=== PATIENT | female | born 1965 | race Asian ===

== ENCOUNTER 2021-08-30 15:28 | Emergency (ER) | payer OTHER, SELFPAY ==
[2021-08-30 15:41] VITALS: BP 140/70; BP 149/85; PULSE 90; PULSE 98; RESP 20; TEMP 37.1; O2SAT 100; O2SAT 99; BMI 25.4
[2021-08-30] MEDS: methylPREDNISolone Sod Succ 125 MG/2 ML VIAL IVPUSH (15:57)
[2021-08-30] MEDS: Famotidine/PF 20 MG/2 ML VIAL IVPUSH (15:57)
--- NOTE | 2021-08-30 16:04 | PC.NURSE ---
Pt presentss to ED with facial swelling and hives, improved since on scene per EMS. no diff breathing but reports itchy throat. Airway patent. Recieved epi x2 in field. Medicated as charted. NSR on tele rate 80-90s
--- NOTE | 2021-08-30 16:05 | ED.ALLEREA ---
HPI - Allergic Reaction General Chief complaint: Allergic Reaction Stated complaint: ALERGIC REACTION Time Seen by Provider: 08/30/21 15:39 Source: patient and EMS Mode of arrival: EMS Limitations: no limitations History of Present Illness HPI narrative: 55 y/o female with no medical history presents to the ER with an allergic reaction 1 hour after eating shrimp and rice. She reports 1 hour after eating it she started having hives on her face, neck, lower legs. She also reported itchy throat, lip swelling and wheezing. EMS was called and patient was given intramuscular epinephrine x2 as well as 50 of Benadryl IV. Patient denies any history of anaphylaxis. She reports a history of childhood hives for which she was on antihistamine for 8 years, stopped and then has never had any allergic reactions since then. She eats trim frequently and has never had allergic reaction before. She is not on any medications. On arrival to the ER she reports her symptoms are improved but she still feels itchiness in her throat and on the right side of her face. She also feels like her bottom lip is swollen. She is anxious and tremulous on arrival. MD complaint: allergic reaction, hives and facial swelling Onset (ago): minute(s) Exposure: food Symptoms: rash, itching, facial swelling and lip swelling Severity: severe Treatment prior to arrival: benadryl and epinephrine Previous Allergic Reaction History: other (Hives as a child) Related Data Allergies Allergy/AdvReac Type Severity Reaction Status Date / Time No Known Allergies Allergy Verified 08/30/21 15:44 Review of Systems Review of Systems: Constitutional: No Fever, No Chills ENT/Mouth: No sore throat, No Rhinorrhea, No Swallowing Difficulty, +throat itching, +lip swelling Eyes: No Eye Pain, No Swelling, No Redness Cardiovascular: No Chest Pain, No SOB Respiratory: No Cough, No Sputum, + Wheezing, No dyspnea Gastrointestinal: No Nausea, No Vomiting, No abdominal Pain Genitourinary: No Dysuria, No Urinary Frequency, No Hematuria Musculoskeletal: No joint pain, No Myalgias Skin: No Skin Lesions, + rash Neuro: No Weakness, No Numbness, No Dizziness, No Headache, +tremors Psych: + Anxiety/Panic, No Depression Heme/Lymph: No Bruising PMFSH Past Medical History Medical History (Updated 08/30/21 @ 16:11 by ABRAHAM Feng) No known health problems Social History Social History Patient Tobacco Use Status: Never used Tobacco Use of substances other than those prescribed or required for medical reasons: No Advance Directives: No Advance Directives Information Provided: Yes Physical Exam Vital Signs: Vital Signs: Last Vital Signs Temp 98.8 F 08/30/21 15:41 Pulse 98 08/30/21 15:41 Resp 20 08/30/21 15:41 BP 149/85 H 08/30/21 15:41 Pulse Ox 99 08/30/21 15:41 BMI result Body Mass Index 25.4 Appearance: Alert. Oriented X3. No acute distress. Eyes: Pupils equal, round and reactive to light. ENT: Moderate upper and lower lip swelling. Airway is patent. Voice is normal. Uvula midline. No tonsillar swelling. Neck: Normal inspection. Neck supple. No anterior throat swelling. There is a hive like rash on the right side of her neck and face. CVS: Tachycardic, regular rhythm. Pulses normal. Respiratory: No respiratory distress. Breath sounds normal. Abdomen: Soft and nontender. +BS x4 Skin: Skin warm and dry. Normal skin color. Normal skin turgor. Extremities: No lower extremity edema. No rash on bilateral lower extremities. Neuro: Oriented X 3. No motor deficit. No sensory deficit. Course Course Course Narrative: 55-year-old female presents with anaphylactic reaction after eating shrimp. Symptoms started around 230 this afternoon. She has got 2 doses of intramuscular epi as well as IV Benadryl prior to arrival. EMS reports significant improvement in her symptoms. She continues to have upper and lower lip swelling and some rash to her neck and face. Her airway is patent and she is breathing comfortably. She is tachycardic and tremulous due to the epinephrine. Will also give her a dose of IV Solu-Medrol as well as IV Pepcid and monitor her closely in the emergency department. Reevaluation(s) Reevaluation #1: Tachycardia has resolved and patient's symptoms are almost completely resolved. She has a slight sensation of continued lip swelling but they appeared much improved since when she came in. Her lungs are clear and she would like to be discharged home. Comfortable with DC. She has been observed for over 2 hours in the ER with near resolution of all of her symptoms. She is encouraged to continue oral Benadryl and all of her symptoms are completely resolved. Encouraged to stay away from shrimp and at her allergy list. She will follow-up with her primary care doctor for allergy testing. Critical Care Time Critical Care Time Critical Care Time: Yes Total Critical Care Time: 35 Attestation: I have personally provided critical care time exclusive of time spent on separately billable procedures. Time includes review of lab data, radiology results, discussion with consultants, and monitoring for potential decompensation. Intervention performed as documented. Discharge Plan Discharge Clinical Impression: Allergic reaction Qualifiers: Encounter type: initial encounter Qualified Code(s): T78.40XA - Allergy, unspecified, initial encounter Anaphylaxis Qualifiers: Encounter type: initial encounter Qualified Code(s): T78.2XXA - Anaphylactic shock, unspecified, initial encounter Patient Disposition: Home, Self-Care Instructions: General Allergic Reaction (ED), Allergy Testing (ED) Additional Instructions: Recommend following up with your doctor for further allergy testing. Recommend staying away from shrimp as this is the most likely cause of your severe allergic reaction. Recommend taking Benadryl 50 mg every 6 hours until your symptoms are completely resolved. If you develop new or worsening symptoms call 911 or come back to the ER for further evaluation.
[2021-08-30 17:54] VITALS: BP 124/72; PULSE 81; RESP 16; O2SAT 99
== END 2021-08-30 17:54 | disposition home or self-care (01) ==
LOC: HO.ED 16:25
PROVIDERS: Emergency Provider Emergency Medicine
DX: T78.02XA Anaphylactic reaction due to shellfish (crustaceans), initial encounter (principal)
CPT/HCPCS: 96374; 96375; 99284; J2930